=== PATIENT | female | born 2000 | race Two or more races ===

== ENCOUNTER 2022-04-30 21:11 | Emergency (ER) | payer MEDICAID ==
[~2022-04-30] VITALS: Ht 157.5 cm; Wt 54.5 kg
[~2022-04-30 21:11] MED LIST: FLUO10CA15 PO
[2022-04-30 21:30] VITALS: BP 130/82
== END 2022-05-01 04:27 | disposition left against medical advice (07) ==
LOC: EDBD 21:11 → ER 21:16
DX: F41.9 Anxiety disorder, unspecified (principal); Z79.899 Other long term (current) drug therapy